=== PATIENT | male | born 2000 | race Two or more races ===

== ENCOUNTER 2023-03-30 12:41 | Outpatient (CLI) | payer OTHER ==
[2023-03-30] MEDS ORDERED: ALBUTEROL 1 PUFF INH STA (16:20)
== END 2023-03-30 12:42 | disposition home or self-care (01) ==
LOC: RT 12:41
PROVIDERS: ATTEND Student in an Organized Health Care Education/Training Program
DX: R06.00 Dyspnea, unspecified (principal)
CPT/HCPCS: 94060